=== PATIENT | male | born 1985 | race African-American/Black ===

== ENCOUNTER 2019-03-16 00:59 | Emergency (ER) | payer SELFPAY ==
[~2019-03-16] VITALS: Ht 180.3 cm; Wt 68.0 kg
[2019-03-16 03:30] VITALS: BP 111/59
== END 2019-03-16 03:55 | disposition left against medical advice (07) ==
LOC: ER 00:59
DX: T63.511A Toxic effect of contact with stingray, accidental (unintentional), initial encounter (principal); M25.472 Effusion, left ankle; F12.10 Cannabis abuse, uncomplicated; Y92.89 Other specified places as the place of occurrence of the external cause
CPT/HCPCS: 99281